=== PATIENT | male | born 1970 | race Caucasian/White ===

== ENCOUNTER 2018-10-01 10:48 | Emergency (ER) | payer BC, OTHER ==
[~2018-10-01] VITALS: Ht 185.4 cm; Wt 71.8 kg
[2018-10-01 10:52] VITALS: Ht 185.4 cm; Wt 71.8 kg
[2018-10-01] MEDS ORDERED: SOD CHLORIDE 0.9% 1,000 ML IV STA (11:24)
[2018-10-01] MEDS ORDERED: CLIN300C10 PO (12:26)
--- NOTE | 2018-10-01 12:39 | ERD ---
ER Documentation Chief Complaint Chief Complaint LEG PAIN AND REDNESS X 3 DAYS HPI 48 yr old male complaining of pain to his right ankle with red streaking up his leg. Patient states that he had an infection over the kneecap last week which popped and drained on its own. He states that 4 days ago he noted some redness to his ankle and last night developed a large ball in the inguinal region which is tender to palpation. He has been sweating. Has not documented fevers and took ibuprofen 2 hours prior to evaluation. He states he feels sick. Denies medical problems. Allergy to sulfa and ampicillin. Surgical history denies. Social history denies ROS All systems reviewed and are negative except as per history of present illness. Medications Home Meds Active Scripts Clindamycin Hcl* (Clindamycin Hcl*) 300 Mg Capsule, 300 MG PO TID for 10 Days, CAP Prov:SUMMER SANCHEZ PA-C 10/01/18 Allergies Allergies: Coded Allergies: Sulfa (Sulfonamide Antibiotics) (Verified Allergy, Intermediate, rash, 10/01/18) ampicillin (Unverified Allergy, Intermediate, rash, 10/01/18) PMhx/Soc History of Surgery: No Anesthesia Reaction: No Hx Neurological Disorder: No Hx Respiratory Disorders: No Hx Cardiac Disorders: No Hx Psychiatric Problems: No Hx Miscellaneous Medical Probl: No Hx Alcohol Use: No Hx Substance Use: No Hx Tobacco Use: No Smoking Status: Never smoker FmHx Family History: No diabetes, No coronary disease, No other Physical Exam Vitals Vital Signs Date Temp Pulse Resp B/P (MAP) Pulse Ox O2 O2 Flow FiO2 Time Delivery Rate 10/01/18 97.6 87 17 148/76 100 10:52 (100) Physical Exam GENERAL: The patient is well-appearing, well-nourished, in no acute distress CHEST: Clear to auscultation bilaterally. There are no rales, wheezes or rhonchi. HEART: Regular rate and rhythm. No murmurs, clicks, rubs or gallops. EXTREMITIES: Equal pulses bilaterally. There is no peripheral clubbing, cyanosis or edema. No focal swelling or erythema. Full range of motion. NEUROLOGIC: Alert and oriented. Cranial nerves II through XII intact. Motor strength in all 4 extremities with 5 out of 5 strength. Sensation grossly intact. SKIN: Erythematous lymphatic streaking noted up the right medial leg. No fluctuance. Result Diagram: 10/01/18 1142 10/01/18 1142 Results 24 hrs Laboratory Tests Test 10/01/18 11:42 White Blood Count 9.7 10^3/ul Red Blood Count 5.07 10^6/ul Hemoglobin 14.5 g/dl Hematocrit 44.6 % Mean Corpuscular Volume 88.0 fl Mean Corpuscular Hemoglobin 28.6 pg Mean Corpuscular Hemoglobin Concent 32.5 g/dl Red Cell Distribution Width 12.8 % Platelet Count 247 10^3/UL Mean Platelet Volume 9.7 fl Immature Granulocytes % 0.300 % Neutrophils % 66.8 % Lymphocytes % 23.7 % Monocytes % 8.3 % Eosinophils % 0.6 % Basophils % 0.3 % Nucleated Red Blood Cells % 0.0 /100WBC Immature Granulocytes # 0.030 10^3/ul Neutrophils # 6.5 10^3/ul Lymphocytes # 2.3 10^3/ul Monocytes # 0.8 10^3/ul Eosinophils # 0.1 10^3/ul Basophils # 0.0 10^3/ul Nucleated Red Blood Cells # 0.0 10^3/ul Sodium Level 141 mmol/L Potassium Level 3.3 mmol/L Chloride Level 103 mmol/L Carbon Dioxide Level 28 mmol/L Anion Gap 10 Blood Urea Nitrogen 11 mg/dl Creatinine 1.04 mg/dl Est Glomerular Filtrat Rate mL/min > 60 mL/min Glucose Level 83 mg/dl Lactic Acid Level 1.9 mmol/L Calcium Level 9.3 mg/dl Total Bilirubin 0.5 mg/dl Direct Bilirubin 0.00 mg/dl Indirect Bilirubin 0.5 mg/dl Aspartate Amino Transf (AST/SGOT) 37 IU/L Alanine Aminotransferase (ALT/SGPT) 18 IU/L Alkaline Phosphatase 103 IU/L Total Protein 8.3 g/dl Albumin 4.4 g/dl Globulin 3.90 g/dl Albumin/Globulin Ratio 1.12 Lipase 53 U/L Current Medications Medications Dose Sig/Castro Start Time Status Last (Trade) Ordered Route PRN Stop Time Admin Dose Reason Admin Sodium 1,000 ml @ Q1H STAT 10/01/18 DC 10/01/18 Chloride 1,000 mls/hr IV 11:24 11:31 10/01/18 12:23 Procedures/MDM ER course: Dr. Ramirez evaluated patient at bedside and decision was made to draw blood work and evaluate concern for possible sepsis. Blood work is normal lactic acid 1.9. 1 L normal saline given in the ED. MDM: 48-year-old male presenting with lymphatic infection. Patient will be trialed on oral antibiotics and recommended to return in 2 days. I have low suspicion for sepsis. Blood culture sent for patient. Patient is discharged with strict ER precautions and told to follow-up with primary care within 1-2 days for close evaluation. Patient is told symptoms change or worsen to return immediately to the ER. All questions answered at discharge Departure Diagnosis: Primary Impression: Cellulitis Condition: Stable Patient Instructions: Cellulitis Referrals: [facility] YOU HAVE RECEIVED A MEDICAL SCREENING EXAM AND THE RESULTS INDICATE THAT YOU DO NOT HAVE A CONDITION THAT REQUIRES URGENT TREATMENT IN THE EMERGENCY DEPARTMENT. FURTHER EVALUATION AND TREATMENT OF YOUR CONDITION CAN WAIT UNTIL YOU ARE SEEN IN YOUR DOCTORS OFFICE WITHIN THE NEXT 1-2 DAYS. IT IS YOUR RESPONSIBILITY TO MAKE AN APPOINTMENT FOR FOLOW-UP CARE. IF YOU HAVE A PRIMARY DOCTOR --you should call your primary doctor and schedule an appointment IF YOU DO NOT HAVE A PRIMARY DOCTOR YOU CAN CALL OUR PHYSICIAN REFERRAL HOTLINE AT IF YOU CAN NOT AFFORD TO SEE A PHYSICIAN YOU CAN CHOSE FROM THE FOLLOWING [facility] [address] [facility] [facility] [address] [facility] [facility] [address] [facility] [address] [facility] [address] [facility] [facility]. [address] Additional Instructions: FOLLOW UP WITH YOUR PRIMARY CARE PHYSICIAN TOMORROW.Return to this facility if you are not improving as expected. SUMMER SANCHEZ PA-C Oct 01, 2018 12:39
[2018-10-01 12:42] VITALS: BP 106/59; PULSE 73; RESP 18
== END 2018-10-01 12:43 | disposition home or self-care (01) ==
LOC: FTE 10:48
DX: L03.115 Cellulitis of right lower limb (principal)
CPT/HCPCS: 80053; 83605; 83690; 85025; 87040; J7030; 36415; 96360